=== PATIENT | female | born 1960 | race Caucasian/White ===

== ENCOUNTER 2017-06-12 23:18 | Emergency (ER) | payer OTHER ==
[~2017-06-12] VITALS: Ht 172.7 cm; Wt 78.0 kg
--- NOTE | ~2017-06-12 | EKG ---
PATIENT: IGOR MARTINEZ UNIT #: [id number] Ventricular Rate: 56 BPM Atrial Rate: 56 BPM P-R Interval: 118 ms QRS Duration: 64 ms Q-T Interval: 452 ms QTC Calculation(Bezet): 436 ms P [place]: 56 degrees Calculated R [place]: 63 degrees Calculated T [place]: 70 degrees Diagnosis Line: Sinus bradycardia with sinus arrhythmia Diagnosis Line: Otherwise normal ECG Diagnosis Line: When compared with ECG of 12-JUN-2017 23:33, Diagnosis Line: (unconfirmed) Diagnosis Line: No significant change was found Diagnosis Line: Confirmed by DENISE STEPHENS MD ([id number]) on Diagnosis Line: 06/13/2017 12:57:26 PM INTERPRETING MD: KAT GONZALEZ
--- NOTE | ~2017-06-12 | EKG ---
PATIENT: IGOR MARTINEZ UNIT #: [id number] Ventricular Rate: 58 BPM Atrial Rate: 58 BPM P-R Interval: 112 ms QRS Duration: 70 ms Q-T Interval: 442 ms QTC Calculation(Bezet): 433 ms P [place]: 59 degrees Calculated R [place]: 72 degrees Calculated T [place]: 52 degrees Diagnosis Line: Sinus bradycardia Diagnosis Line: Nonspecific ST abnormality Diagnosis Line: Abnormal ECG Diagnosis Line: No previous ECGs available Diagnosis Line: Confirmed by DENISE STEPHENS MD ([id number]) on Diagnosis Line: 06/13/2017 12:57:23 PM INTERPRETING MD: KAT GONZALEZ
--- NOTE | ~2017-06-12 | CT71 ---
[facility] A Service [facility] RADIOLOGY TEXT RESULTS PATIENT: IGOR MARTINEZ LOCATION: SED : 56 UNIT #: [id number] AGE: [address]: Claudio Myles MD SEX: F ORDER DR: [id number] [place] [id number] [id number] E MR#: [id number] #: [id number] NAME: IGOR MARTINEZ : 1960 SEX: F STUDY DATE/TIME: 06/12/2017 23:58 UNIT: SED ROOM: STUDY DESCRIPTION: CT Head Wo Contrast Attending Physician: Claudio Myles M.D. Ordering Physician: Claudio Myles M.D. Primary Care Physician: Suhail Jauregui M.D. MEDICAL IMAGING REPORT This report is preliminary unless electronic signature is present. EXAM CT head without contrast INDICATION Right-sided weakness and confusion for the past [address] head. This CT examination was performed with one or more of the following radiation dose reduction techniques: automatic exposure control, adjustment of mA and/or kV according to patient size, and iterative reconstruction. COMPARISON None. FINDINGS There is significant edema and low attenuation throughout, essentially the entire right MCA territory. There is approximately 1.5 cm of xetrr-tx-spty midline shift. There is compression of the right lateral ventricle. No hydrocephalous. No definite acute hemorrhage. No calvarial fracture. IMPRESSION Evolving large right MCA territory infarct with significant edema resulting in 1.5 cm of ifquo-jo-tqzn midline shift and near complete compression of the right lateral ventricle. Dictated by... Mihir Gamino M.D. [facility] A Service [facility] RADIOLOGY TEXT RESULTS PATIENT: IGOR MARTINEZ LOCATION: SED : 56 UNIT #: [id number] AGE: [address]: Claudio Myles MD SEX: F ORDER DR: THIS IS AN ELECTRONICALLY VERIFIED REPORT Mihir Gamino M.D. at 06/13/2017 9:52 PM ADIA/joaquin TD: 06/13/2017 10:42 JOB #: [id number] MEDICAL IMAGING REPORT Page 1 of 1
[~2017-06-12 23:18] MED LIST: ALBUTEROL17 G1 IH; ALBUTEROL17 GM INH; AMBIEN PO; BACTROBAN15 GM TOP; CLEOCIN HCL300 M1 PO; DUONEB 2.5-0.5 M3 ML NEB; EFFEXOR XR150 MG PO; HYCODAN60 ML 5MG/ DOB; HYDROCODON-ACE1 EAC7 PO; LEVAQUIN750 MG PO; MOBIC PO; PERCOCET PO; PREMARIN0.625 MG PO; SKELAXIN PO; XANAX2 MG PO; [UNRECOGNIZED DRUG - OTHER]; [UNRECOGNIZED DRUG - OTHER] PO
[2017-06-12] MEDS ORDERED: OXAPROZIN600 MG PO (23:27)
[2017-06-12 23:53] LABS: BASOPHIL# 0.1 X10e3 (0-0.3); BASOPHIL% 1.3 % (0-2.5); DIFF IND NO; EOSINOPHIL# 0.2 X10e3 (0-0.7); EOSINOPHIL% 2.7 % (0.0-7.0); HEMATOCRIT 39.7 % (35.0-45.0); HEMOGLOBIN 13.2 gm/dL (12.0-16.0); LYMPHOCYTE# 2.8 X10e3 (1.0-3.5); LYMPHOCYTE% 40.5 % (17.0-45.0); MEAN CELL VOLUME 92.6 FL (83-96); MEAN CORPUSCULAR HEMOGLOBIN 30.9 PG (28-34); MEAN CORPUSCULAR HGB CONC 33.3 g/dL (30-36); MEAN PLATELET VOLUME 8.4 FL (6.5-11.5); MONOCYTE# 0.5 X10e3 (0-1.0); MONOCYTE% 7.2 % (3.0-12.0); NEUTROPHIL# 3.4 X10e3 (1.5-7.1); NEUTROPHIL% 48.3 % (40-75); PLATELET COUNT 238 X10e3 (140-420); RED BLOOD COUNT 4.28 X10e (3.90-5.30); RED CELL DISTRIBUTION WIDTH 13.5 % (11.0-15.5)
[2017-06-13 00:10] LABS: POC - CKMB 1.9 ng/mL (0.0-7.9); POC - TROPONIN <0.05 ng/mL (<=0.05)
[2017-06-13 00:12] LABS: ALBUMIN SERUM 4.2 g/dL (3.5-5.0); BILIRUBIN,TOTAL 0.4 mg/dL (0.2-2.0); BUN/CREATININE RATIO 14.44; CALCIUM SERUM 8.6 mg/dL (8.4-10.2); CREATININE SERUM 0.9 mg/dL (0.6-1.4); POTASSIUM 3.2 mmol/L (3.5-5.1); PROTEIN TOTAL SERUM 7.1 g/dL (6.0-8.3); PROTHROMBIN TIME (PATIENT) 11.1 SECONDS (9.5-12.4)
[2017-06-13 00:20] LABS: PARTIAL THROMBOPLASTIN TIME 29.7 SECONDS (25.6-38.1)
== END 2017-06-13 01:14 | disposition hospice, home (50) ==
LOC: SED 23:18
DX: I63.9 Cerebral infarction, unspecified (principal); F41.9 Anxiety disorder, unspecified; J44.9 Chronic obstructive pulmonary disease, unspecified; F17.200 Nicotine dependence, unspecified, uncomplicated; Z88.2 Allergy status to sulfonamides; Z88.1 Allergy status to other antibiotic agents
CPT/HCPCS: 70450; 80053; 82553; 84484; 85025; 85610; 85730; 93005; 96374; 99291; J0461